=== PATIENT | male | born 1990 | race Caucasian/White ===

== ENCOUNTER 2017-02-15 15:22 | Emergency (ER) | payer OTHER ==
[2017-02-15 16:34] VITALS: BP 119/81
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
[2017-02-15] MEDS ORDERED: TORADOL IM ONE (18:02)
[2017-02-15] MEDS ORDERED: BOOSTRIX IM ONE (18:07)
[2017-02-15] MEDS ORDERED: PERCOCET 5/325 PO ONE (18:16)
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
== END 2017-02-15 21:10 | disposition other institution (70) ==
LOC: ED 15:22
DX: S09.93XA Unspecified injury of face, initial encounter (principal); Y04.2XXA Assault by strike against or bumped into by another person, initial encounter; Y93.89 Activity, other specified; Y99.8 Other external cause status; Y92.143 Cell of prison as the place of occurrence of the external cause
CPT/HCPCS: 70450; 70486; 72125; 90471; 90715